=== PATIENT | male | born 1985 | race Caucasian/White ===

== ENCOUNTER 2016-12-07 09:07 | Emergency (ER) | payer BC ==
[~2016-12-07] VITALS: Ht 195.6 cm; Wt 109.1 kg
[~2016-12-07 09:07] MED LIST: NO HOME MEDICATIONS
[2016-12-07 09:12] VITALS: BP 141/93; TEMP 98.1
[2016-12-07 11:08] VITALS: PULSE 77
== END 2016-12-07 11:08 | disposition home or self-care (01) ==
LOC: COL.ER 09:07
DX: S96.811A Strain of other specified muscles and tendons at ankle and foot level, right foot, initial encounter (principal); X50.1XXA Overexertion from prolonged static or awkward postures, initial encounter

== ENCOUNTER → 2016-12-23 | Outpatient (CLI) | payer BC | LOC: COL.RAD 07:50 | DX: S92.344A Nondisplaced fracture of fourth metatarsal bone, right foot, initial encounter for closed fracture (principal); X58.XXXA Exposure to other specified factors, initial encounter ==

== ENCOUNTER → 2018-04-26 | Outpatient (CLI) | payer BC | LOC: COL.RAD 13:09 | DX: M51.17 Intervertebral disc disorders with radiculopathy, lumbosacral region (principal); M48.07 Spinal stenosis, lumbosacral region ==

== ENCOUNTER → 2018-05-21 | Outpatient (CLI) | payer BC | LOC: MHCPAIN 14:35 | DX: G89.29 Other chronic pain (principal); M47.817 Spondylosis without myelopathy or radiculopathy, lumbosacral region; M54.16 Radiculopathy, lumbar region; M53.3 Sacrococcygeal disorders, not elsewhere classified | CPT/HCPCS: G0463 ==

== ENCOUNTER → 2018-05-31 | Outpatient (CLI) | payer BC | LOC: MHCPAIN 14:29 | DX: M47.817 Spondylosis without myelopathy or radiculopathy, lumbosacral region (principal) | CPT/HCPCS: J1100; Q9967 ==

== ENCOUNTER → 2018-06-13 | Outpatient (CLI) | payer BC | LOC: MHCPAIN 13:28 | DX: G89.29 Other chronic pain (principal); M47.817 Spondylosis without myelopathy or radiculopathy, lumbosacral region; M54.16 Radiculopathy, lumbar region; M53.3 Sacrococcygeal disorders, not elsewhere classified | CPT/HCPCS: G0463 ==

== ENCOUNTER → 2018-06-21 | Outpatient (CLI) | payer BC | LOC: MHCPAIN 14:32 | DX: M54.16 Radiculopathy, lumbar region (principal) | CPT/HCPCS: J1100; Q9967 ==

== ENCOUNTER → 2018-07-24 | Outpatient (CLI) | payer BC | LOC: MHCPAIN 15:18 | DX: G89.29 Other chronic pain (principal); M47.817 Spondylosis without myelopathy or radiculopathy, lumbosacral region; M54.16 Radiculopathy, lumbar region; M53.3 Sacrococcygeal disorders, not elsewhere classified | CPT/HCPCS: G0463 ==

== ENCOUNTER 2019-08-30 20:15 | Emergency (ER) | payer OTHER ==
[~2019-08-30] VITALS: Ht 195.6 cm; Wt 120.5 kg
[2019-08-30 20:17] VITALS: TEMP 98.4
[2019-08-30 21:05] VITALS: BP 162/100; PULSE 100
== END 2019-08-30 21:05 | disposition home or self-care (01) ==
LOC: COL.ER 20:15
DX: F10.129 Alcohol abuse with intoxication, unspecified (principal); Z02.83 Encounter for blood-alcohol and blood-drug test; Y90.1 Blood alcohol level of 20-39 mg/100 ml